=== PATIENT | female | born 2000 | race American Indian/Alaskan Native ===

== ENCOUNTER 2021-01-04 23:18 | Emergency (ER) | payer OTHER ==
[2021-01-04] MEDS ORDERED: HYDROcodone/ACETAMINOPHEN 5-325 MG TAB PO ONE (23:39)
[2021-01-04 23:49] VITALS: BP 124/76
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
[2021-01-05] MEDS ORDERED: ACETAMINOPHEN 325 MG TAB PO ONE (00:50)
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
== END 2021-01-05 02:00 | disposition home or self-care (01) ==
LOC: ED 23:18
DX: M54.2 Cervicalgia (principal); R51.9 Headache, unspecified; Z79.899 Other long term (current) drug therapy; V87.7XXA Person injured in collision between other specified motor vehicles (traffic), initial encounter; Y93.89 Activity, other specified; Y92.488 Other paved roadways as the place of occurrence of the external cause; Y99.8 Other external cause status
CPT/HCPCS: 70450; 71046; 72125; 99284